=== PATIENT | female | born 1965 | race Caucasian/White ===

== ENCOUNTER 2022-12-05 14:05 | Outpatient (AMB) | payer OTHER, SELFPAY ==
--- NOTE | 2022-12-05 14:07 | A.OFFVIS_ITS ---
Intake Vital Signs 12/05/22 14:17 Height 5 ft 5.5 in Weight 165 lb BMI 27.0 BP 160/69 H Blood Pressure Location Rt brachial Position Sitting Pulse 75 Pulse Source Pulse Oximeter Pulse Oximetry (%) 99 Oxygen Delivery Method Room Air Intake Visit Reasons: DJD Intake Note: Pain today 05/17. [employer] Required: No Accompanied by: Self / Same As Patient Allergies nickel Allergy (Unknown, Verified 12/05/22 14:19) Blister meperidine [From Demerol] Adverse Reaction (Unknown, Verified 12/05/22 14:19) Nausea and Vomiting HPI DJD HPI Details Patient is a pleasant 57 years old female with history of breast cancer, arthritis, compression fracture of T11 vertebra s/p kyphoplasty, knee replacement, right shoulder surgery (05/2022), and degenerative joint disease, presents today for initial evaluation chronic low back, bilateral shoulders, bilateral hips, feet and knees pain. Denies any recent trauma, injury or falls. Patient associates her joint pain with taking Anastrozole. She works as a Nurse Practitioner at [employer] and reports seeing most of her specialty providers there, including PCP, oncology, and rheumatology. Patient reports she underwent multiple therapeutic injections through [facility] with temporary good results. Upon discussion of treating her pain and focusing on one or two pain generators, patient reports she is not interested in our interventional treatment options. She reports opioids have been working well for her in the past and this is something she was hoping to discuss today. She is currently managing her pain with Cymbalta, Tylenol and NSAIDs with partial pain relief. I have informed patient that our office does not offer Opioid Program and this time. She may return for discussion interventional procedures for a longer term pain relief. Location Bilateral shoulders, lower back, bilateral hips, feet and knees Duration Chronic pain for many years Characteristics of symptom or complaint Aching, throbbing, numbness Aggravating or associated factors Moving joints Relieving factors Cymbalta 60mg, Tylenol 1,000mg, Motrin 800mg Treatment injections from [facility] Review of Systems Const All systems reviewed & are unremarkable except as noted in HPI and below Physical Exam General: Appears afebrile. Alert and oriented. Mood and affect appropriate. Follows and participates in conversation appropriately. Respiratory effort is unlabored. No cough. Able to transition from sit to stand unassisted. Assessment & Plan Assessment & Plan (1) Degenerative joint disease: Code(s): M19.90 - Unspecified osteoarthritis, unspecified site Coding Level of Care Code New Pt Level 4 (08990) Left Without Being Seen Diagnoses Degenerative joint disease M19.90
[2022-12-05 14:17] VITALS: BP 160/69; PULSE 75; O2SAT 99; BMI 27.0
== END 2022-12-05 14:38 | disposition home or self-care (01) ==
PROVIDERS: PCP Internal Medicine; Visit Provider Nurse Practitioner Family
DX: M19.90 Unspecified osteoarthritis, unspecified site (principal)
CPT/HCPCS: 99204

== ENCOUNTER → 2022-12-05 14:05 | Outpatient (BNVA) | payer OTHER, SELFPAY | PROVIDERS: PCP Internal Medicine; Visit Provider Nurse Practitioner Family ==